=== PATIENT | female | born 1965 | race Caucasian/White ===

== ENCOUNTER 2022-03-21 09:04 | Emergency (ER) | payer BC, SELFPAY ==
[2022-03-21 09:12] VITALS: BP 144/100; PULSE 69; RESP 18; TEMP 36.6; O2SAT 97; BMI 24.2
--- NOTE | 2022-03-21 09:26 | ED.GENADULT ---
HPI - General Adult General Chief complaint: Urogenital Problems, Female Stated complaint: uti Time Seen by Provider: 03/21/22 09:22 History of Present Illness HPI narrative: This 57-year-old female comes in reporting some urinary frequency and increase in pressure in her lower abdomen. These symptoms started this morning. She states that she does get urinary tract infections very frequently. She does not report any fevers. She is otherwise in good health. Related Data Previous Rx's Medication Instructions Recorded cephalexin 500 mg capsule 500 mg PO TID 7 days #21 caps 03/21/22 Allergies Allergy/AdvReac Type Severity Reaction Status Date / Time morphine Allergy Verified 03/21/22 09:12 Review of Systems Status of ROS: Reports: 10 or more systems reviewed and unremarkable except as noted in History and below Narrative: Constitutional: No fevers, no weight gain or loss. Eyes: No discharge. No vision changes. HENT: No congestion, no sore throat, no ear pain. Cardiovascular: No chest pain, no palpitations. Respiratory: No shortness of breath, no wheezes, no cough. Gastrointestinal: No abdominal pain, no vomiting, no diarrhea. Genitourinary: No hematuria. Increased frequency and urgency as described above. Musculoskeletal: Normal range of motion. Skin: No rashes, no pruritis. Neurological: No dizziness, weakness, sensory change, speech change. Endo/Heme/Allergies: No bruising or bleeding. No polydipsia. Pysch: no suicidality, no anxiety, no insomnia. All other systems reviewed and are negative. PFSH PFSH Social History Smoking Status: Unknown if ever smoked Do you use any of these nicotine containing products: None How often do you have six or more drinks on one occasion: Less than monthly AUDIT-C Alcohol total score: 1 Non-prescribed substance use: denies use Exam Narrative: Exam Narrative: Constitutional: Well-developed, well-nourished, no acute distress. HEENT: Normocephalic, atraumatic. Neck: Normal range of motion. Nontender. Supple. Heart: Intact distal pulses. Lungs: No chest discomfort. No wheezes, rhonchi, or rales. Abdomen: Nontender. Back: Normal range of motion. Extremities: Normal range of motion. No injury. Skin: Intact. No rash. Warm. No erythema or pallor. Neurologic: No altered sensation. No weakness. Alert and oriented. Psychiatric: No suicidality. No anxiety or depression. No insomnia. Nursing notes and vitals signs are reviewed. Const: Vital Signs, click to edit/add: Vital Signs - 24 hr 03/21/22 09:12 Temperature 97.8 F Pulse Rate [Right Pulse Oximeter] 69 Respiratory Rate 18 Blood Pressure [Ri ght Upper Arm] 144/100 H Pulse Oximetry 97 Oxygen Delivery Me thod Room Air Course Vital Signs Vital signs: Initial Vital Signs Temperature 97.8 F 03/21/22 09:12 Temperature Source Temporal Artery Scan 03/21/22 09:12 Pulse Rate 69 03/21/22 09:12 Respiratory Rate 18 03/21/22 09:12 Blood Pressure 144/100 H 03/21/22 09:12 Blood Pressure Mean 114 03/21/22 09:12 Blood Pressure Position Standing 03/21/22 09:12 Pulse Oximetry 97 03/21/22 09:12 Oxygen Delivery Method 03/21/22 09:12 Vital Signs Temperature 97.8 F 03/21/22 09:12 Pulse Rate 69 03/21/22 09:12 Respiratory Rate 18 03/21/22 09:12 Blood Pressure 144/100 H 03/21/22 09:12 Pulse Oximetry 97 03/21/22 09:12 Oxygen Delivery Method 03/21/22 09:12 Temperature 97.8 F 03/21/22 09:12 Pulse Rate 69 03/21/22 09:12 Respiratory Rate 18 03/21/22 09:12 Blood Pressure 144/100 H 03/21/22 09:12 Pulse Oximetry 97 03/21/22 09:12 Oxygen Delivery Method 03/21/22 09:12 Medical Decision Making MDM Narrative Medical decision making narrative: Urinalysis returns showing 25-50 white blood cells per high-powered field. Culture results are pending. Patient received a prescription for Keflex. Lab Data Labs: Lab Results 03/21/22 Range/Units 09:21 Urine Color Yellow (Yellow) Urine Appearance Cloudy A (Clear) Urine pH 6.5 (5.0-8.5) Ur Specific [place] 1.025 (1.000-1.030) Urine Protein Negative (Negative) Urine Glucose (UA) Negative (Negative) Urine Ketones Negative (Negative) Urine Blood Trace-intact A (Negative) Urine Nitrite Negative (Negative) Urine Bilirubin Negative (Negative) Urine Urobilinogen 0.2 (0.2-1.0) Ur Leukocyte Esterase 2+ A (Negative) Urine RBC 0-2 (0-2) Urine WBC 25-50 A (0-5) Ur Squamous Epith Cells Moderate A (None-Few) Amorphous Sediment (None) Other Sediment (None) Urine Bacteria Few A (None) Urine Mucus (None) Discharge Plan Discharge Clinical Impression: Urinary tract infection Patient Disposition: Home, Self-Care Condition: Stable Instructions: Urinary Tract Infection in Women (ED) Prescriptions: New cephalexin 500 mg capsule 500 mg PO TID 7 Days Qty: 21 0RF Follow Up/Referrals: Tyler Au MD [Primary Care Provider] - Stand Alone Forms: [employer] Info Instructions
[2022-03-21 09:38] LABS: Appearance Urine Cloudy (Clear); Bilirubin Urine Negative (Negative); Blood Urine Trace-intact (Negative); Color Urine Yellow (Yellow); Glucose Urine Negative (Negative); Ketones Urine Negative (Negative); Leukocyte Esterase Urine 2+ (Negative); Nitrite Urine Negative (Negative); Protein Urine Negative (Negative); Specific Gravity Urine 1.025 (1.000-1.030); Urobilinogen Urine 0.2 (0.2-1.0); pH Urine 6.5 (5.0-8.5)
[2022-03-21 09:54] LABS: RBC Urine 0-2 (0-2); WBC Urine 25-50 (0-5)
[2022-03-21 09:55] LABS: Bacteria Urine Few; Squamous Epithelial Cell Urine Moderate (None-Few)
== END 2022-03-21 10:25 | disposition home or self-care (01) ==
PROVIDERS: Emergency Provider Emergency Medicine Emergency Medical Services; PCP Family Medicine
DX: N39.0 Urinary tract infection, site not specified (principal)
CPT/HCPCS: 81001; 87086; 99283; 99284

== ENCOUNTER 2022-08-15 05:10 | Emergency (ER) | payer BC, SELFPAY ==
[2022-08-15 05:26] VITALS: BP 171/95; PULSE 83; RESP 18; TEMP 36.7; O2SAT 99; BMI 24.2
[2022-08-15 05:30] LABS: Appearance Urine Cloudy (Clear); Bilirubin Urine Negative (Negative); Blood Urine 3+ (Negative); Color Urine Yellow (Yellow); Glucose Urine Negative (Negative); Ketones Urine Negative (Negative); Leukocyte Esterase Urine 3+ (Negative); Nitrite Urine Negative (Negative); Protein Urine 2+ (Negative); Specific Gravity Urine 1.025 (1.000-1.030); Urobilinogen Urine 0.2 (0.2-1.0)
[2022-08-15 05:38] LABS: RBC Urine 50-100 (0-2); Squamous Epithelial Cell Urine Moderate (None-Few); WBC Urine 25-50 (0-5)
[2022-08-15 05:39] LABS: Bacteria Urine Moderate
--- NOTE | 2022-08-15 06:00 | ED_ITS ---
HPI - General Adult General Chief complaint: Urogenital Problems, Female Stated complaint: UTI Time Seen by Provider: 08/15/22 05:12 Source: patient Mode of arrival: ambulatory Limitations: no limitations History of Present Illness HPI narrative: 57-year-old female with no significant medical problems presents with 2 days of dysuria, increasing. She noted blood in her urine last night, prompting her to come to the emergency room this morning. There is no weakness, dizziness, flank pain, fever or any other emergent type symptoms associated with this. No vaginal discharge. There is no systemic symptoms like diarrhea, falls, injury or severe back pain. She has not tried any interventions like cranberry tablets per a DM, other types of medications at home. She has been pushing fluids with no improvement. Last urinary infection was in March, I do have records on this, looks like she was treated with Keflex, reports that her symptoms resolved without complication. No history of antibiotic allergies. Past medical history benign, denies any major long-term health problems. No prescription medications, no allergies. No recent surgeries but does report a prior endometrial ablation. This was uncomplicated. Socially denies any pertinent travel or STD exposure. ROS is negative times 12 systems with the exception of the dysuria and urinary symptoms as above Related Data Previous Rx's Medication Instructions Recorded cephalexin 500 mg capsule 500 mg PO TID 7 days #21 caps 03/21/22 cephalexin 500 mg capsule 500 mg PO Q8H #15 caps 08/15/22 Allergies Allergy/AdvReac Type Severity Reaction Status Date / Time morphine Allergy Intermediate Hives Verified 08/15/22 05:29 [facility] Medical History Hypercholesteremia No significant past medical history Social History Smoking Status: Never smoker Do you use any of these nicotine containing products: None Second hand tobacco smoke exposure: No How often do you have a drink containing alcohol: never How often do you have six or more drinks on one occasion: Less than monthly AUDIT-C Alcohol total score: 1 Non-prescribed substance use: denies use Exam Const: Vital Signs, click to edit/add: Vital Signs - 24 hr 08/15/22 05:26 Temperature 98.0 F Pulse Rate [Right Pulse Oximeter] 83 Respiratory Rate 18 Blood Pressure [Ri ght Upper Arm] 171/95 H Pulse Oximetry 99 Oxygen Delivery Me thod Room Air Common normals: no apparent distress General appearance: cooperative and well kempt HENMT: Common normals: normocephalic Head and scalp: normocephalic Mouth: oral and palatal mucosa normal Throat: posterior oropharynx normal Eye: Common normals: PERRL and conjunctivae normal Conjunctiva: conjunctiva(e) normal Pupil: PERRL Resp: Common normals: normal respiratory effort, no use of accessory muscles and clear to auscultation bilaterally Effort & inspection: able to speak in complete sentences Auscultation: clear to auscultation bilaterally Cardio: Common normals: regular rate, regular rhythm, S1 normal heart sound, S2 normal heart sound and peripheral pulses 2+ throughout Rate: regular rate Rhythm: regular rhythm Heart sounds: S1 normal and S2 normal Peripheral pulses: pulses 2+ throughout GI: Common normals: Normal to inspection, nondistended, normoactive bowel sounds present Other: Mild tenderness in suprapubic region only, no mass Extremity: Common normals: normal capillary refill and no pedal edema Psych: Appearance: well kempt Attitude: engaged Mood and affect: euthymic mood Insight: insight good Judgement: judgment good Skin: Common normals: no rashes or lesions noted General skin exam: no rashes or lesions noted Course Vital Signs Vital signs: Initial Vital Signs Temperature 98.0 F 08/15/22 05:26 Temperature Source Temporal Artery Scan 08/15/22 05:26 Pulse Rate 83 08/15/22 05:26 Respiratory Rate 18 08/15/22 05:26 Blood Pressure 171/95 H 08/15/22 05:26 Blood Pressure Mean 120 08/15/22 05:26 Blood Pressure Position Sitting 08/15/22 05:26 Pulse Oximetry 99 08/15/22 05:26 Oxygen Delivery Method 08/15/22 05:26 Vital Signs Temperature 98.0 F 08/15/22 05:26 Pulse Rate 83 08/15/22 05:26 Respiratory Rate 18 08/15/22 05:26 Blood Pressure 171/95 H 08/15/22 05:26 Pulse Oximetry 99 08/15/22 05:26 Oxygen Delivery Method 08/15/22 05:26 Temperature 98.0 F 08/15/22 05:26 Pulse Rate 83 08/15/22 05:26 Respiratory Rate 18 08/15/22 05:26 Blood Pressure 171/95 H 08/15/22 05:26 Pulse Oximetry 99 08/15/22 05:26 Oxygen Delivery Method 08/15/22 05:26 Medical Decision Making MDM Narrative Medical decision making narrative: UA reviewed with patient, strongly suspicious for bladder infection. No symptoms that would make me suspicious of a stone or other complication. No fevers or other worrisome symptoms that would warrant blood work. Will begin Keflex 500 mg p.o. x1 and continue treatment with 500 mg t.i.d. for 5 days. Will dose Pyridium p.o. x1, counseled to push fluids, urine discoloration to be expected. Recheck if not improving in 48 hours, ED visit if any severe symptoms that would mimic sepsis or kidney stone. Lab Data Lab results reviewed: Yes I reviewed the patient's lab results Labs: Lab Results 08/15/22 Range/Units 05:20 Urine Color Yellow (Yellow) Urine Appearance Cloudy A (Clear) Urine pH 7.0 (5.0-8.5) Ur Specific [place] 1.025 (1.000-1.030) Urine Protein 2+ A (Negative) Urine Glucose (UA) Negative (Negative) Urine Ketones Negative (Negative) Urine Blood 3+ A (Negative) Urine Nitrite Negative (Negative) Urine Bilirubin Negative (Negative) Urine Urobilinogen 0.2 (0.2-1.0) Ur Leukocyte Esterase 3+ A (Negative) Urine RBC 50-100 A (0-2) Urine WBC 25-50 A (0-5) Ur Squamous Epith Cells Moderate A (None-Few) Urine Bacteria Moderate A (None) Discharge Plan Discharge Clinical Impression: Urinary tract infection Patient Disposition: Home, Self-Care Condition: Stable Instructions: Urinary Tract Infection in Women (DC) Additional Instructions: Your urine shows signs of infection, blood may be common for the 1st couple of days but should cease within a couple of days. You been started on Keflex, your 1st dose was given in the emergency room. Your next dose would be due at 2:00 p.m.. You will take this 3 times daily for 5 days. Severe dizziness, weakness, high fevers would not be expected, especially after 24 hours. Any complications would warrant a recheck at urgent care or call to your primary care physician. Activity Level: No Restrictions Discharge Diet: Regular Prescriptions: New cephalexin 500 mg capsule 500 mg PO Q8H Qty: 15 0RF No Action cephalexin 500 mg capsule 500 mg PO TID 7 Days Qty: 21 0RF Follow Up/Referrals: Tyler Au MD [Primary Care Provider] - Stand Alone Forms: [employer] Info Instructions
[2022-08-15 06:10] VITALS: BP 165/84; PULSE 79; RESP 18; TEMP 36.7; O2SAT 99
[2022-08-15] MEDS: PHENAZOPYRIDINE HCL 200 MG TABLET PO (06:10)
[2022-08-15] MEDS: cephALEXin 500 MG CAPSULE PO (06:10)
[2022-08-15 06:11] VITALS: BP 165/84; PULSE 79; RESP 18; TEMP 36.7
== END 2022-08-15 06:11 | disposition home or self-care (01) ==
PROVIDERS: Emergency Provider Family Medicine; PCP Family Medicine
DX: N39.0 Urinary tract infection, site not specified (principal)
CPT/HCPCS: 81001; 87086; 87186; 99282; 99283; 99284; A9270

== ENCOUNTER 2024-04-30 14:35 | Outpatient (CLI) | payer BC, SELFPAY | END 2024-04-30 14:36 | disposition home or self-care (01) | LOC: NFLDREF 05-04 17:42 | PROVIDERS: PCP Family Medicine; Referring Provider Family Medicine; Visit Provider Physician Assistant | DX: N39.0 Urinary tract infection, site not specified (principal) | CPT/HCPCS: 87086 ==

== ENCOUNTER 2024-08-22 21:00 | Emergency (ER) | payer BC, SELFPAY ==
--- OUTSIDE RECORDS SUMMARY | 2024-08-22 21:01 | XMS_ITS | Clinical Summary ---
Author Organization [employer] Address [place], [place] [address] Care Team Providers Care Welding Machine Operator Name Role Phone Lindy Archibald DO Primary Care Provider Allergies Active Allergy Reactions Criticality Noted Date Comments Sumatriptan Other - Describe In Comment Field 10/12/2011 Upper back and chest pressure Morphine Vomiting 03/19/2009 Medications acetaminophen-code ine (TYLENOL #3) 300-30 mg per tabletIndications: New daily persistent headache Take 1 Tablet by mouth every 6 hours if needed for Pain. Max acetaminophen dose: 4000mg in 24 hrs. 10 Tablet 12/08/19 24 Active rosuvastatin (CRESTOR) 20 mg tabletIndications: Mixed hyperlipidemia TAKE 1 TABLET BY MOUTH EVERYDAY AT BEDTIME 100 Tablet 3 12/08/19 24 Active Active Problems Problem Noted Date Diagnosed Date Pap smear for cervical cancer screening 02/09/20 24 Overview (02/09/2024): 01/31/2024: NIL/HPV negative Plan: Pap and HPV due in 5 years. Herniated lumbar intervertebral disc 01/12/2018 Adenomatous colon polyp 09/13/2017 Overview (09/13/2017): Colonoscopy 08/2017 polyp, repeat in 5 years Adjustment disorder with mixed anxiety and depre ssed mood 06/16/2015 Trigeminal neuralgia 04/02/2009 Mixed hyperlipidemia 08/03/2007 Dysmenorrhea 08/03/2007 Overview (08/03/2007): endometrial ablation 09/27 Encounters Date Type Department Care Team Description 08/22/2024 Telephone [facility] [address] [place] [address] Lindy Archibald, DO Results (LABS); Questions (Labs) 08/20/2024 1:30 PM AUTOMOTIVE SALES SPECIALIST Orders Only [facility] [address] [facility] [address] [facility], [place] [facility] 08/20/2024 12:05 PM AUTOMOTIVE SALES SPECIALIST E-Visit [facility] [address] [place] [address] Lindy Archibald, DO eVisit for Urinary Tract Infection 08/20/2024 Travel 08/20/2024 Nurse Triage [facility] [address] [place] [address] [address] Lindy Archibald Zara, DO Questions from Last 3 Months Immunizations Name Administration Dates Next Due COVID-19 vaccine (Jenna-J& J) PF, MDV 02/04/2021 Hepatitis A (Adult) 09/27/2016 Hepatitis A (Peds) 04/14/2015 Influenza, IIV3 (Age 6-35 mos) 07/13/2011 Influenza, IIV3 (Age >=3 years) 05/21/20 16,04/14/2015,07/13/2011,2009 Influenza, IIV4 05/26/2014 MMR 12/19/2017,04/14/2015 Td (Age >=7 Years) 11/26/1997 Td, Preservative Free (age > = 7 Years) 05/18/2017 Tdap 05/01/2007 Zoster (Shingrix-RZV, recombinant) 12/04/2017 Family History Medical History Relation Name Comments Cancer Brother lymphoma, part of ear canal removed, lymph nodes removed Cancer Father d 80 yo acute l ymphoma(ALL) Heart Disease Father Hypertension Father Stroke Father Diabetes Mother d 79 Thyroid Disease Mother ?? hypothyro id Cancer-breast No Family History Relation Name Status Comments Brother Father Mother Social History Tobacco Use Types Packs/Day Years Used Date Smoking Tobacco: Former Cigarettes 0.5 20 1 10/01/1992 - 07/31/2013 Smokeless Tobacco: Never Tobacco Cessation:Counseling Given: Yes Alcohol Use Standard Drinks/Week Comments Not Currently 4.2 (1 standard drink = 0.6 oz p ure alcohol) occasionally PHQ-2 Answer Date Recorded PHQ-2 TOTAL SCORE 0 01/31/2024 Social Connections Answer Date Recorded Frequency of Communication with Friends and Fami ly Not on file 12/21/2023 Financial Resource Strain Answer Date R ecorded Difficulty of Paying Living Expenses 3 12/20/2022 Difficulty of Paying Living Expenses Not on file 12/20/2022 Food Insecurity Answer Date Recorded Worried About Running Out of Food in the Last Ye ar 1 12/20/2022 Transportation Needs Answer Date Record ed Lack of Transportation (Medical) 1 12/20/2022 Housing Stability Answer Date Recorded Unable to Pay for Housing in the Last Year 1 12/20/2022 Comments No Sex and Gender Information Value Date Recorded Sex Assigned at Not on file Legal Sex Female 5:26 AM AUTOMOTIVE SALES SPECIALIST Gender Identity Not on file Sexual Orientation Not on file Occupation Industry Job Start Date Job End Date Not on file Not on file Not on file Not on file Not on file Not on file Not on file Not on file Obstetrics History Para Term AB IAB SAB Ectopic Multiple Livin g Live Births 1 1 1 0 0 0 0 0 1 Date Outcome GA Total Labor Labor/2nd/3rd Weight Sex Type Anes PTL Zara A1 A5 Name Clin Term Last Filed Vital Signs Vital Sign Reading Time Taken Comments Blood Pressure 128/85 01/31/2024 9:08 AM CDT Pulse 62 01/31/2024 9:08 AM CDT Temperature 36.8 C (98.3 F) 10/21/2021 9:07 AM AUTOMOTIVE SALES SPECIALIST Respiratory Rate 16 07/19/2021 10:5 3 AM AUTOMOTIVE SALES SPECIALIST Oxygen Saturation 98% 01/31/2024 9:08 AM CDT Inhaled Oxygen Concentration - - Weight 71.6 kg (157 lb 14.4 oz) 01/31/2024 9:08 AM CDT Height 167 cm (5' 5.75) 01/31/2024 9:08 AM CDT Body Mass Index 25.68 01/31/2024 9:08 AM CDT Plan of Treatment Upcoming Encounters Date Type Department Care Team (Late st Contact Info) Description 08/23/2024 8:10 AM AUTOMOTIVE SALES SPECIALIST Office Visit [facility] [address] [place] [address] Jazmine Ko [place] [address] [facility] [address] Health Maintenance Due Date Last Done Comments HIV for age 15-65 1981 Hepatitis C screening for ag e 18-79 1984 Pneumococcal series for age 50+ (1 of 1 - PCV) 2016 Zoster (shingles) series for age 50+ (2 of 2) 01/29/2018 12/04/2017 Colonoscopy through age 75 09/08/2022 09/08/2017, COVID-19 vaccine series ( season) 2024 02/04/2021 Influenza for age 50-64 04/21/2024 05/21/20 16, 04/14/2015, 05/26/2014, Additional history exists Mammogram for age 45-75 08/29/2024 08/29/19 24, 06/13/2022, 05/14/2021, Additional history exists BMI (ht and wt on same day) for age 18+ 01/30/2025 01/31/2024, 06/13/2022, 07/19/2021, Additional history exists Depression screening for age 12+ 01/30/2025 01/31/2024, 05/23/2022, 06/10/2020, Additional history exists Tetanus booster 05/18/2027 05/18/2017, 04/21, 11/26/1997 Pap test for age 21-65 01/30/2029 , 01/31/2024, 12/19/2018, Additional history exists Lipids for age 45-75 05/14/2029 05/14/2024, 12/08/2023, 08/26/2022, Additional history exists Tdap Completed 05/01/2007 Procedures Procedure Name Priority Date/Time Associated Diagnosis Comments URINALYSIS MICROSCOPIC Routine 08/20/2024 1:32 PM AUTOMOTIVE SALES SPECIALIST UTI symptoms URINE CULTURE Routine 08/20/2024 1:32 PM AUTOMOTIVE SALES SPECIALIST UTI symptoms URINALYSIS MACROSCOPIC - [facility] ONLY POC DIP (QUEST) Routine 08/20/2024 1:30 PM AUTOMOTIVE SALES SPECIALIST UTI symptoms LIPID PANEL W REFLEX MEASURED LDL Routine 05/14/2024 7:45 AM CDT Mixed hyperlipidemia HPV HIGH RISK Routine 01/31/2024 9:52 AM CDT Screening for cervical cancer XR MAMMO JOSEPHINE BILAT SCREEN Routine 08/29/2023 4:15 PM AUTOMOTIVE SALES SPECIALIST Encounter for screening mammogram for malignant neoplasm of breast COLONOSCOPY 09/08/2017 8:09 AM AUTOMOTIVE SALES SPECIALIST from Last 3 Months or Most Recently Relevant to Health Maintenance Results * URINALYSIS MICROSCOPIC (08/20/2024 1:32 PM AUTOMOTIVE SALES SPECIALIST) RBC 0-2 0-2, None Seen /HPF 08/21/2024 12:29 AM AUTOMOTIVE SALES SPECIALIST [facility] WBC 0-2 0-2, 3-5, None Seen /HPF 08/21/2024 12:29 AM AUTOMOTIVE SALES SPECIALIST [facility] BACTERIA Few None Seen, Rare, Few Bacteria/H PF 08/21/2024 12:29 AM AUTOMOTIVE SALES SPECIALIST [facility] EPITHELIAL CELLS Few None Seen, Few Epi/HPF 08/21/2024 12:29 AM AUTOMOTIVE SALES SPECIALIST [facility] HYALINE CASTS 0-2 0-2, 3-5 /LPF 08/21/2024 12:29 AM AUTOMOTIVE SALES SPECIALIST [facility] Urine URINE SPECIMEN / Unknown Non-Blood / Unknown 08/20/2024 1:32 PM AUTOMOTIVE SALES SPECIALIST 08/20/2024 1:32 PM AUTOMOTIVE SALES SPECIALIST us Lindy Archibald DO URINE Final Result [facility] [address] [place] [address], * URINE CULTURE (08/20/2024 1:32 PM AUTOMOTIVE SALES SPECIALIST) CULTURE 50,000-100,000 CFU/mL of multiple organisms, probable contaminants 08/22/2024 11:25 AM AUTOMOTIVE SALES SPECIALIST [facility] Urine URINE SPECIMEN / Unknown Non-Blood / Unknown 08/20/2024 1:32 PM AUTOMOTIVE SALES SPECIALIST 08/20/2024 1:32 PM AUTOMOTIVE SALES SPECIALIST Lindy Teleborderqra DO MICROBIOLOGY Final Result [facility] [address] [place] [address], * POCT Urinalysis Dipstick Only (08/20/2024 1:30 PM AUTOMOTIVE SALES SPECIALIST) [facility] PH 6.0 5.0 - 8.0 [facility] SPECIFIC GRAVITY 1.015 1.001 - 1.035 [facility] GLUCOSE NEGATIVE NEGATIVE [facility] BILIRUBIN NEGATIVE NEGATIVE [facility] KETONES NEGATIVE NEGATIVE [facility] OCCULT BLOOD NEGATIVE NEGATIVE [facility] PROTEIN NEGATIVE NEGATIVE [facility] NITRITE NEGATIVE NEGATIVE [facility] LEUKOCYTE ESTERASE NEGATIVE NEGATIVE [facility] Urine URINE SPECIMEN / Unknown 08/20/2024 1:30 PM AUTOMOTIVE SALES SPECIALIST 08/20/2024 1:30 PM AUTOMOTIVE SALES SPECIALIST [employer] DO URINE Final Result Performing Organization Address City/[facility]/ZIP Co de Phone Number [facility] [[email or web address]] [address] [place] [address], [place] [phone] [facility] [address] [place] [address] * (ABNORMAL) LIPID PANEL W REFLEX MEASURED LDL (05/14/2024 7:45 AM CDT) Pathologist [facility] CHOLESTEROL, TOTAL 213(H) <200 mg/dL [facility] HDL CHOLESTEROL 62 > OR = 50 mg/dL [facility] TRIGLYCERIDES 214(H) <150 mg/dL [facility] Comment: If a non-fasting specimen was collected, consider repeat triglyceride testing on a fasting specimen if clinically indicated. Vandana et al. J. of Clin. Lipidol. 2015;9:129-169. LDL-CHOLESTEROL 118(H) mg/dL (calc) [facility] Comment: Reference range: <100 Desirable range <100 mg/dL for primary prevention; <70 mg/dL for patients with CHD or diabetic patients with > or = 2 CHD risk factors. LDL-C is now calculated using the Jose E calculation, which is a validated novel method providing better accuracy than the Friedewald equation in the estimation of LDL-C. Rashawn LOVE et al. BRAYDON. 2013;310(19): 1136-3126 (http://education.Folkstr/faq/YMI222) CHOL/HDLC RATIO 3.4 <5.0 (calc) [facility] NON HDL CHOLESTEROL 151(H) <130 mg/dL (calc) [facility] Comment: For patients with diabetes plus 1 major ASCVD risk factor, treating to a non-HDL-C goal of <100 mg/dL (LDL-C of <70 mg/dL) is considered a therapeutic option. Blood BLOOD SPECIMEN / Unknown 05/14/2024 7:45 AM CDT 05/14/2024 7:46 AM CDT Narrative [employer] [facility] - 05/15/2024 5:56 AM CDT FASTING:YES FASTING: YES us Lindy Archibald DO CHEMISTRY Final Result [employer] [facility] [address] [place] [address], [facility] [address] [place] [address] * HPV HIGH RISK (01/31/2024 9:52 AM CDT) TYPE 16 Negative Negative 02/03/2024 2:19 PM CDT [facility] TYPE 18 Negative Negative 02/03/2024 2:19 PM CDT [facility] OTHER HIGH RISK TYPES Negative Negative 02/03/2024 2:19 PM CDT [facility] Other (Cervical) Non-Blood / Unknown 01/31/2024 9:52 AM CDT 02/02/2024 8:34 AM CDT Narrative [facility] - 02/03/2024 2:19 PM CDT HPV types 16, 18, 31, 33, 35, 39, 45, 51, 52, 56, 58, 59, 66 and 68 DNA were undetectable or below the pre-set threshold. Methodology: [employer] [place] [address]00 HPV Test Lindy Archibald DO MICROBIOLOGY Final Result [facility] [address] [place] [address], [place] * XR MAMMO JOSEPHINE BILAT SCREEN (08/29/2023 4:15 PM AUTOMOTIVE SALES SPECIALIST) Anatomical Region Laterality Modality BREASTS, Breast Left, Breast Right Bilateral Mammography Impressions 08/31/2023 1:36 PM AUTOMOTIVE SALES SPECIALIST There is no radiographic evidence for malignancy. Recommend annual mammograms. MAMMOGRAM ASSESSMENT: ACR 1 Negative PATIENTS: You will also receive a letter with your examination results in an easy to read format. If you have questions about your results, please contact your referring provider. Narrative 08/31/2023 1:36 PM AUTOMOTIVE SALES SPECIALIST For Patients: As a result of the 21st Century Cures Act, medical imaging exams and procedure reports are released immediately into your electronic medical record. You may view this report before your referring provider. If you have questions, please contact your health care provider. XR MAMMO JOSEPHINE BILAT SCREEN [[id number]] CLINICAL HISTORY: This is an asymptomatic 58 y.o. patient. INDICATION FOR EXAM: Mammogram Screening. TECHNIQUE: CC & MLO views were obtained. This study was evaluated with the assistance of Computer-Aided Detection. Breast Tomosynthesis was used in interpretation. COMPARISON FILM: Yes 06/13/22 [facility] 05/14/21 [facility] FINDINGS: The breasts are heterogeneously dense, which may obscure small masses. There are no dominant masses, suspicious micro calcifications or areas of architectural distortion. us Lindy Archibald DO MAMMO Final Result * COLONOSCOPY (09/08/2017 8:09 AM AUTOMOTIVE SALES SPECIALIST) 09/08/2017 8:09 AM AUTOMOTIVE SALES SPECIALIST Narrative Transcriptions Rashawn Henson MD - 09/08/2017 9:20 AM CST Patient Name: Candelaria Nelson Procedure Date: 09/08/2017 Gender: Female Date of : 1965 Admit Type: Outpatient Procedure: Colonoscopy Proceduralist: Rashawn Henson MD , Lorene Wood (Nurse) Indications/Pre-Op Diagnosis: Screening for colorectal malignant neoplasm, This is the patient's first colonoscopy Medications: Fentanyl 100 micrograms IV, Midazolam 4 mgIV, The level of sedation administered wasmoderate Procedure Description: The patient had risks, benefits and alternatives explained to andgave informed consent. The patient had a stable cardiopulmonary status and judged an adequate candidate for conscious sedation. The [id number] was passed through the anus and advanced tothe terminal ileum. The colonoscopy was performed without difficulty. The patient tolerated the procedure well. The quality of the bowel preparation was good. The terminal ileum, ileocecal valve,appendiceal orifice, and rectum were photographed. Complications: No immediate complications. Estimated Blood Loss & Specimen: Estimated blood loss: none. Specimen collected - Yes and sent to Laboratory Findings: The perianal and digital rectal examinations were normal. A 4 mm polyp was found in the descending colon. The polyp wassessile. The polyp was removed with a cold snare. Resection and retrieval were complete. The exam was otherwise without abnormality on direct and retroflexion views. Impressions/Post-Op Diagnosis: - One 4 mm polyp in the descending colon, removed with a cold snare. Resected and retrieved. - The examination was otherwise normal on direct and retroflexionviews. Recommendation: - Patient has a contact number available for emergencies. The signsand symptoms of potential delayed complications were discussed with the patient. Return to normal activities tomorrow. Written discharge instructions were provided to the patient. - Resume previous diet. - Continue present medications. - Await pathology results. - Repeat colonoscopy is recommended. The colonoscopy date will be determined after pathology results from today's exam become available for review. Moderate Sedation: Moderate (conscious) sedation was administered by the endoscopy nurse and supervised by the endoscopist. The following parameters were monitored: oxygen saturation, heart rate, respiratory rate, blood pressure, adequacy of pulmonary ventilation and reponse to care. Please refer to the [facility]' medical record flowsheets and nursing notes for moderate sedation details. Total physician intraservice time was 26 minutes. Rashawn Henson MD 09/08/2017 9:20:33 AM This report has been signed electronically. Note Initiated On: 09/08/2017 8:09 AM Scope In: 8:50:33 AM Scope Withdrawal Time 0 hours 13 minutes 7 seconds Scope Out: 9:13:04 AM us Rashawn Henson MD PROCEDURE ORD Final Res ult from Last 3 Months or Most Recently Relevant to Health Maintenance Insurance [facility] [employer] [address] [place] [address] Care Teams Welding Machine Operator Relationship Specialty Start Date End Date Lindy Archibald DO [address] [place] [address] PCP - General Family Practice 12/20/22
[2024-08-22 21:14] VITALS: BP 149/92; PULSE 62; RESP 18; TEMP 37.1; O2SAT 95; BMI 25.0
--- OUTSIDE RECORDS SUMMARY | 2024-08-22 21:40 | XMS_ITS | Clinical Summary ---
Author Organization [employer] Address [place], [place] [address] Care Team Providers Care E D Tech Name Role Phone Lindy Archibald DO Primary Care Provider [phone] Allergies Active Allergy Reactions Criticality Noted Date [...] Type Department Care Team Description 08/22/2024 Telephone [facility] [[email or web address]] [address] [place] [address] [address] Lindy Archibald, DO Results (LABS); Questions (Labs) 08/20/2024 1:30 PM SUPERVISOR PLEATING Orders Only [facility] [[email or web address]] [address] [facility] [address] [place], [place] Lab 08/20/2024 12:05 PM SUPERVISOR PLEATING E-Visit [facility] [[email or web address]] [address] [place] [address] [address] Lindy Archibald, DO eVisit for Urinary Tract Infection 08/20/2024 Travel 08/20/2024 Nurse Triage [facility] [[email or web address]] [address] [place] [address] [address] Lindy Archibald Zara, DO Questions from Last [...] on file Legal Sex Female 5:26 AM SUPERVISOR PLEATING Gender Identity Not on file Sexual Orientation [...] 36.8 C (98.3 F) 10/21/2021 9:07 AM SUPERVISOR PLEATING Respiratory Rate 16 07/19/2021 10:5 3 AM SUPERVISOR PLEATING Oxygen Saturation 98% 01/31/2024 9:08 AM CDT Inhaled Oxygen Concentration - - Weight 71.6 kg (157 lb 14.4 oz) 01/31/2024 9:08 AM CDT Height 167 cm (5' 5.75) 01/31/2024 9:08 AM CDT Body Mass Index 25.68 01/31/2024 9:08 AM CDT Plan of Treatment Upcoming Encounters Date Type Department Care Team (Late st Contact Info) Description 08/23/2024 8:10 AM SUPERVISOR PLEATING Office Visit [facility] [[email or web address]] [address] [address] Jazmine Ko PA [address] [facility] [address] Health Maintenance Due Date Last Done Comments [...] Comments URINALYSIS MICROSCOPIC Routine 08/20/2024 1:32 PM SUPERVISOR PLEATING UTI symptoms URINE CULTURE Routine 08/20/2024 1:32 PM SUPERVISOR PLEATING UTI symptoms URINALYSIS MACROSCOPIC - [facility] POC DIP (QUEST) Routine 08/20/2024 1:30 PM SUPERVISOR PLEATING UTI symptoms LIPID PANEL W REFLEX MEASURED LDL Routine 05/14/2024 7:45 AM CDT Mixed hyperlipidemia HPV HIGH RISK Routine 01/31/2024 9:52 AM CDT Screening for cervical cancer XR MAMMO JOSEPHINE BILAT SCREEN Routine 08/29/2023 4:15 PM SUPERVISOR PLEATING Encounter for screening mammogram for malignant neoplasm of breast COLONOSCOPY 09/08/2017 8:09 AM SUPERVISOR PLEATING from Last 3 Months or Most Recently Relevant to Health Maintenance Results * URINALYSIS MICROSCOPIC (08/20/2024 1:32 PM SUPERVISOR PLEATING) RBC 0-2 0-2, None Seen /HPF 08/21/2024 12:29 AM SUPERVISOR PLEATING [facility] WBC 0-2 0-2, 3-5, None Seen /HPF 08/21/2024 12:29 AM SUPERVISOR PLEATING [facility] BACTERIA Few None Seen, Rare, Few Bacteria/H PF 08/21/2024 12:29 AM SUPERVISOR PLEATING [facility] EPITHELIAL CELLS Few None Seen, Few Epi/HPF 08/21/2024 12:29 AM SUPERVISOR PLEATING [facility] HYALINE CASTS 0-2 0-2, 3-5 /LPF 08/21/2024 12:29 AM SUPERVISOR PLEATING [facility] Urine URINE SPECIMEN / Unknown Non-Blood / Unknown 08/20/2024 1:32 PM SUPERVISOR PLEATING 08/20/2024 1:32 PM SUPERVISOR PLEATING us Lindy Archibald DO URINE Final Result [facility] [address] [place] [address], * URINE CULTURE (08/20/2024 1:32 PM SUPERVISOR PLEATING) CULTURE 50,000-100,000 CFU/mL of multiple organisms, probable contaminants 08/22/2024 11:25 AM SUPERVISOR PLEATING [facility] Urine URINE SPECIMEN / Unknown Non-Blood / Unknown 08/20/2024 1:32 PM SUPERVISOR PLEATING 08/20/2024 1:32 PM SUPERVISOR PLEATING Lindy MyDocTimeqra DO MICROBIOLOGY Final Result [facility] [address] [place] [address], * POCT Urinalysis Dipstick Only (08/20/2024 1:30 PM SUPERVISOR PLEATING) [facility] PH 6.0 5.0 - 8.0 [facility] SPECIFIC GRAVITY 1.015 1.001 - 1.035 [facility] GLUCOSE NEGATIVE NEGATIVE [facility] BILIRUBIN NEGATIVE NEGATIVE [facility] KETONES NEGATIVE NEGATIVE [facility] OCCULT BLOOD NEGATIVE NEGATIVE [facility] PROTEIN NEGATIVE NEGATIVE [facility] NITRITE NEGATIVE NEGATIVE [facility] LEUKOCYTE ESTERASE NEGATIVE NEGATIVE [facility] Urine URINE SPECIMEN / Unknown 08/20/2024 1:30 PM SUPERVISOR PLEATING 08/20/2024 1:30 PM SUPERVISOR PLEATING [employer] DO URINE Final Result Performing Organization Address City/[facility]/ZIP Co de Phone Number [facility] [address] [place] [address], [place] [phone] [facility] [address] [place] [address] * (ABNORMAL) LIPID PANEL W REFLEX MEASURED LDL (05/14/2024 7:45 AM CDT) Pathologist [facility] CHOLESTEROL, TOTAL 213(H) <200 mg/dL [facility] HDL CHOLESTEROL 62 > OR = 50 mg/dL [facility] TRIGLYCERIDES 214(H) <150 mg/dL [facility] Comment: If a non-fasting specimen was collected, consider repeat triglyceride testing on a fasting specimen if clinically indicated. Vandana et al. J. of Clin. Lipidol. 2015;9:129-169. LDL-CHOLESTEROL 118(H) mg/dL (calc) [facility] Comment: Reference range: <100 Desirable range <100 mg/dL for primary prevention; <70 mg/dL for patients with CHD or diabetic patients with > or = 2 CHD risk factors. LDL-C is now calculated using the Jose E calculation, which is a validated novel method providing better accuracy than the Friedewald equation in the estimation of LDL-C. Rashawn LOVE et al. BRAYDON. 2013;310(19): 2305-8111 (http://education.Rotation Medical/faq/BOP563) CHOL/HDLC RATIO 3.4 <5.0 (calc) [facility] NON HDL CHOLESTEROL 151(H) <130 mg/dL (calc) [facility] Comment: For patients with diabetes plus 1 major ASCVD risk factor, treating to a non-HDL-C goal of <100 mg/dL (LDL-C of <70 mg/dL) is considered a therapeutic option. Blood BLOOD SPECIMEN / Unknown 05/14/2024 7:45 AM CDT 05/14/2024 7:46 AM CDT Narrative [facility] - 05/15/2024 5:56 AM CDT FASTING:YES FASTING: YES us Lindy Archibald DO CHEMISTRY Final Result [facility] [address] [place] [address], [facility] [address] [place] [address] * HPV HIGH RISK (01/31/2024 9:52 AM CDT) TYPE 16 Negative Negative 02/03/2024 2:19 PM CDT [facility] TYPE 18 Negative Negative 02/03/2024 2:19 PM CDT [facility] OTHER HIGH RISK TYPES Negative Negative 02/03/2024 2:19 PM CDT [facility] Other (Cervical) Non-Blood / Unknown 01/31/2024 9:52 AM CDT 02/02/2024 8:34 AM CDT Narrative [facility] - 02/03/2024 2:19 PM CDT HPV types 16, 18, 31, 33, 35, 39, 45, 51, 52, 56, 58, 59, 66 and 68 DNA were undetectable or below the pre-set threshold. Methodology: [employer] 4800 HPV Test Lindy Archibald DO MICROBIOLOGY Final Result [facility] [address] [place] [address], [place] * XR MAMMO JOSEPHINE BILAT SCREEN (08/29/2023 4:15 PM SUPERVISOR PLEATING) Anatomical Region Laterality Modality BREASTS, Breast Left, Breast Right Bilateral Mammography Impressions 08/31/2023 1:36 PM SUPERVISOR PLEATING There is no radiographic evidence for malignancy. Recommend annual mammograms. MAMMOGRAM ASSESSMENT: ACR 1 Negative PATIENTS: You will also receive a letter with your examination results in an easy to read format. If you have questions about your results, please contact your referring provider. Narrative 08/31/2023 1:36 PM SUPERVISOR PLEATING For Patients: As a result of the 21st Century Cures Act, medical imaging exams and procedure reports are released immediately into your electronic medical record. You may view this report before your referring provider. If you have questions, please contact your health care provider. XR MAMMO JOSEPHINE BILAT SCREEN [[id number]] CLINICAL HISTORY: This is an asymptomatic 58 [...] Final Result * COLONOSCOPY (09/08/2017 8:09 AM SUPERVISOR PLEATING) 09/08/2017 8:09 AM SUPERVISOR PLEATING Narrative Transcriptions Rashawn Henson MD - 09/08/2017 [...] adequate candidate for conscious sedation. The [id number] was passed through the anus and advanced [...] reponse to care. Please refer to the [facility] medical record flowsheets and nursing notes for [...] Most Recently Relevant to Health Maintenance Insurance [facility] [employer] [address] [place] [address] Care Teams E D Tech Relationship Specialty Start Date End Date Lindy Archibald DO [address] [place] [address] PCP - General Family Practice 12/20/22
[2024-08-22 21:50] LABS: Appearance Urine Slightly Cloudy (Clear); Bilirubin Urine Negative (Negative); Blood Urine 3+ (Negative); Color Urine Yellow (Yellow); Glucose Urine Negative (Negative); Ketones Urine Negative (Negative); Leukocyte Esterase Urine Trace (Negative); Nitrite Urine Negative (Negative); Protein Urine Trace (Negative); Specific Gravity Urine >= 1.030 (1.000-1.030); Urobilinogen Urine 0.2 (0.2-1.0); pH Urine 5.5 (5.0-8.5)
[2024-08-22 21:54] LABS: RBC Urine 50-100 (0-2); Squamous Epithelial Cell Urine Few (None-Few)
[2024-08-22 21:55] LABS: Bacteria Urine Few
--- NOTE | 2024-08-22 22:03 | ED_ITS ---
HPI - General Adult General Chief complaint: Urogenital Problems, Female Stated complaint: UTI Time Seen by Provider: 08/22/24 21:17 History of Present Illness HPI narrative: Patient is a 59-year-old woman who presents with urinary frequency and burning. She has had symptoms for the last 24 hours. She has had no fevers no chills no nausea no vomiting no weakness. She has been treated for urinary tract infections with factor in the past. Patient medications are minimal. Patient h as no signs of sepsis. She has otherwise been feeling Related Data Home Medications ?Medication ?Instructions ?Recorded ?Confirmed rosuvastatin 20 mg tablet 20 mg PO HS 08/15/22 08/22/24 Allergies Allergy/AdvReac Type Severity Reaction Status Date / Time morphine Allergy Intermediate Hives Verified 08/22/24 21:17 Review of Systems Status of ROS: Reports: 10 or more systems reviewed and unremarkable except as noted in History and below [facility] Medical History Adenomatous colon polyp ?D12.6 - Benign neoplasm of colon, unspecified (ICD-10) Herniated lumbar intervertebral disc ?M51.26 - Other intervertebral disc displacement, lumbar region (ICD-10) Adjustment disorder with mixed anxiety and depressed mood ?F43.23 - Adjustment disorder with mixed anxiety and depressed mood (ICD-10) Trigeminal neuralgia ?G50.0 - Trigeminal neuralgia (ICD-10) Dysmenorrhea ?N94.6 - Dysmenorrhea, unspecified (ICD-10) Hyperlipidemia ?E78.5 - Hyperlipidemia, unspecified (ICD-10) Surgical History History of endometrial ablation ?Z98.890 - Other specified postprocedural states (ICD-10) History of colonoscopy ?Z98.890 - Other specified postprocedural states (ICD-10) History of appendectomy ?Z90.49 - Acquired absence of other specified parts of digestive tract (ICD- 10) Social History Smoking Status: Never smoker Do you use any of these nicotine containing products: None Second hand tobacco smoke exposure: No How often do you have a drink containing alcohol: never How often do you have six or more drinks on one occasion: Less than monthly AUDIT-C Alcohol total score: 1 Non-prescribed substance use: denies use Exam Narrative: Exam Narrative: EXAM GENERAL: Patient appears comfortable and well. EYES: No scleral icterus. LYMPH: No supraclavicular or cervical lymphadenopathy. SKIN: Visible skin seen during exam normal or with benign process only. EXT: No dependent lower extremity pedal edema. HEART: Regular rate and rhythm with no murmurs, rubs, or gallops. LUNGS: Clear to auscultation bilaterally with no crackles or wheezes. ABD: Soft, non tender, non distended. PSYCH: Good eye contact, speech is not pressured. Const: Vital Signs, click to edit/add: Vital Signs - 24 hr 08/22/24 21:14 Temperature 98.8 F Pulse Rate [Pulse Oximeter] 62 Respiratory Rate 18 Blood Pressure [Ri ght Upper Arm] 149/92 H Pulse Oximetry 95 Oxygen Delivery Me thod Room Air Course Course ED Course: Patient seen and examined. Urinalysis reviewed. Vital Signs Vital signs: Initial Vital Signs Temperature 98.8 F 08/22/24 21:14 Temperature Source Temporal Artery Scan 08/22/24 21:14 Pulse Rate 62 08/22/24 21:14 Respiratory Rate 18 08/22/24 21:14 Blood Pressure 149/92 H 08/22/24 21:14 Blood Pressure Mean 111 H 08/22/24 21:14 Blood Pressure Position Sitting 08/22/24 21:14 Pulse Oximetry 95 08/22/24 21:14 Oxygen Delivery Method Room Air 08/22/24 21:14 Vital Signs Temperature 98.8 F 08/22/24 21:14 Pulse Rate 62 08/22/24 21:14 Respiratory Rate 18 08/22/24 21:14 Blood Pressure 149/92 H 08/22/24 21:14 Pulse Oximetry 95 08/22/24 21:14 Oxygen Delivery Method Room Air 08/22/24 21:14 Temperature 98.8 F 08/22/24 21:14 Pulse Rate 62 08/22/24 21:14 Respiratory Rate 18 08/22/24 21:14 Blood Pressure 149/92 H 08/22/24 21:14 Pulse Oximetry 95 08/22/24 21:14 Oxygen Delivery Method Room Air 08/22/24 21:14 Medical Decision Making MDM Narrative Medical decision making narrative: Patient is a 59-year-old woman who presents with symptoms consistent with UTI and her urinalysis is also consistent with UTI. She has no signs of sepsis syndrome is eating and drinking normally. This time will treated with Bactrim Double Strength twice a day for 5 days with outpatient follow-up as needed. Lab Data Labs: Lab Results 08/22/24 Range/Units 21:10 Urine Color Yellow (Yellow) Urine Appearance Slightly Cloudy A (Clear) Urine pH 5.5 (5.0-8.5) Ur Specific [place] >= 1.030 (1.000-1.030) Urine Protein Trace A (Negative) Urine Glucose (UA) Negative (Negative) Urine Ketones Negative (Negative) Urine Blood 3+ A (Negative) Urine Nitrite Negative (Negative) Urine Bilirubin Negative (Negative) Urine Urobilinogen 0.2 (0.2-1.0) Ur Leukocyte Esterase Trace A (Negative) Urine RBC 50-100 A (0-2) Urine WBC 2-5 (0-5) Ur Squamous Epith Cells Few (None-Few) Urine Bacteria Few A (None) Discharge Plan Discharge Clinical Impression: Urinary tract infection Patient Disposition: Home, Self-Care Condition: Stable Instructions: Urinary Tract Infection in Women (ED) Additional Instructions: Bactrim as directed Rest Fluids Tylenol Motrin Follow-up with primary care as needed. Activity Level: No Restrictions Discharge Diet: Regular Prescriptions: No Action rosuvastatin 20 mg tablet 20 mg PO HS Patient Comments: TAKE 1 TABLET BY MOUTH EVERYDAY AT BEDTIME Follow Up/Referrals: Lindy Archibald DO [Primary Care Provider] - Stand Alone Forms: [employer] Info Instructions
== END 2024-08-22 22:13 | disposition home or self-care (01) ==
PROVIDERS: Emergency Provider Internal Medicine; PCP Family Medicine
DX: N39.0 Urinary tract infection, site not specified (principal)
CPT/HCPCS: 81001; 87086; 87186; 99283

== ENCOUNTER 2025-07-25 08:11 | Outpatient (CLI) | payer BC, SELFPAY ==
--- NOTE | 2025-07-25 09:37 | P.ANES_ITS ---
Anesthesia Charges Start Date/Time Anesthesia Start Date: 07/25/25 Anesthesia Start Time: 09:05 Stop Date/Time Anesthesia Stop Date: 07/25/25 Anesthesia Stop Time: 09:33 Coding CPT Codes CPT Codes: TASNEEM LWR INTST NDSC NOS - 58640 ([id number]) P2 - PATIENT W/MILD SYST DISEASE, QK - REFUGE WORKER 2-4 CNCRNT ANES PROC, QX - DRUG SAFETY SPECIALIST SVC W/ MD MED DIRECTION
--- NOTE | 2025-07-25 09:37 | W.ANESCHARGE ---
Anesthesia Charges Start Date/Time Anesthesia Start Date: 07/25/25 Anesthesia Start Time: 09:05 Stop Date/Time Anesthesia Stop Date: 07/25/25 Anesthesia Stop Time: 09:33 Coding CPT Codes CPT Codes: TASNEEM LWR INTST NDSC NOS - 72331 ([id number]) P2 - PATIENT W/MILD SYST DISEASE, QK - TANK OFFICER 2-4 CNCRNT ANES PROC, QX - TRANSCRIPTION TYPIST SVC W/ MD MED DIRECTION
--- NOTE | 2025-07-25 11:03 | P.ANES_ITS ---
Anesthesia Charges Start Date/Time Anesthesia Start Date: 07/25/25 Anesthesia Start Time: 09:05 Stop Date/Time Anesthesia Stop Date: 07/25/25 Anesthesia Stop Time: 09:33 Coding CPT Codes CPT Codes: TASNEEM LWR INTST NDSC NOS - 05278 ([id number]) P2 - PATIENT W/MILD SYST DISEASE, QK - TERRA COTTA ROOFER HELPER 2-4 CNCRNT ANES PROC, QX - WRIST LINER SVC W/ MD MED DIRECTION
--- NOTE | 2025-07-25 11:03 | W.ANESCHARGE ---
Anesthesia Charges Start Date/Time Anesthesia Start Date: 07/25/25 Anesthesia Start Time: 09:05 Stop Date/Time Anesthesia Stop Date: 07/25/25 Anesthesia Stop Time: 09:33 Coding CPT Codes CPT Codes: TASNEEM LWR INTST NDSC NOS - 34862 ([id number]) P2 - PATIENT W/MILD SYST DISEASE, QK - TUNGSTEN REFINER 2-4 CNCRNT ANES PROC, QX - BED MACHINE OPERATOR SVC W/ MD MED DIRECTION
== END 2025-07-25 08:12 | disposition home or self-care (01) ==
LOC: OP CLINIC 08:13
PROVIDERS: PCP Family Medicine; Visit Provider Internal Medicine Gastroenterology
DX: Z86.0100 Personal history of colon polyps, unspecified (principal); D12.4 Benign neoplasm of descending colon
CPT/HCPCS: 00811; 45385; 88305; J2704